=== PATIENT | female | born 1960 | race Caucasian/White ===

== ENCOUNTER 2016-04-24 10:38 | Day surgery (SDC) | payer OTHER ==
[~2016-04-24] VITALS: Ht 167.6 cm; Wt 62.1 kg
[~2016-04-24 10:38] MED LIST: DARVOCET-N 1001 EACH PO; DULOXETINE 30MG30 MG PO; FLEXERIL10 MG PO; GABAPENTIN 600600 MG PO; HCTZ/LISINOPRIL1 TA3 PO; LEVOTHYROXIN0.125 M1 NG; MELOXICAM15 MG PO; METAXALONE800 MG PO; MOBIC7.5 MG PO; MULTIVITAMIN1 SGL PO; OMEPRAZOLE40 MG PO; PROAIR HFA0.09 MG/AC IH; TRAZADONE HYDR100 MG PO
[2016-04-24 10:54] VITALS: BP 138/77
[2016-04-24 11:23] VITALS: BP 138/77
[2016-04-24 11:24] VITALS: BP 90/63
--- NOTE | 2016-04-24 11:36 | Procedure Note ---
Procedure detail Date of procedure: 04/24/16 Anesthesiologist: Kamron Reddy CRNA Complications: None Pre-procedure diagnosis: Facet arthropathy, lumbar spondylosis Post-procedure diagnosis: Same Indications for procedure: This patient's a very pleasant 55-year-old white female we've been treating her pain clinic for chronic low back pain secondary to degenerative disease lumbar spine multiple levels as well as lumbar facet arthropathy. Lumbar spondylosis. Patient status post 2 rounds medial branch block lumbar L3-4, L4-5, L5-S1. Patient reports 2-3 hours of complete relief in terms of her low back pain. After which time her pain slowly returned to baseline. I discussed rhizotomy lumbar spine with the patient today. She wishes to proceed. She describes her low back pain as constant, dull, aching. She does not report radiculopathy symptoms. We will proceed with a radiofrequency ablation today we will begin on the RIGHT side and have her come back in 2 weeks for the LEFT. Procedure detail: The procedure was explained to the patient in detail. Consent form was signed. Patient was taken back to the procedure room, where noninvasive monitors were placed. This included noninvasive blood pressure cuff and pulse oximeter. The patient was placed prone on the C-arm table. The area over the lumbar spine was cleansed using chlorhexidine as cleansing solution. Using fluoroscopy guidance, markers were placed over the pedicle at the RIGHT [ L4, L5] as well as over the [sacral ala]. 1% Lidocaine was used to anesthetize the skin with a 25-gauge needle at these markers. Using fluoroscopy guidance the radiofrequency probe was used to access the superior margin of the pedicle at [ L4, L5 and the sacral ala ]. After negative sensory and motor stimulation, 2 mls of 0.25% Marcaine and 10 mg of Depo-Medrol were injected into each needle. We then proceeded with radial frequency ablation at all 3 levels at 80 degrees Celsius 60 seconds. After the lesion was formed the needles were withdrawn. Band-Aids were applied. The patient tolerated the procedure without difficulty. There were no complications Plan and disposition: Patient was reevaluated 10 minutes post procedure. Patient reports slight pain in the RIGHT side lumbar spine. She'll continue to follow up with us in the pain clinic for further evaluation. at [id number]
[2016-04-24 11:58] VITALS: BP 116/75
== END 2016-04-24 11:58 ==
LOC: PM 10:38
PROC: 3E0T3TZ Introduction of Destructive Agent into Peripheral Nerves and Plexi, Percutaneous Approach (ICD-10-PCS; principal; 2016-04-24)
DX: M46.96 Unspecified inflammatory spondylopathy, lumbar region (principal); M47.896 Other spondylosis, lumbar region
CPT/HCPCS: J1030

== ENCOUNTER 2017-03-05 14:54 | Day surgery (SDC) | payer OTHER ==
[~2017-03-05] VITALS: Ht 167.6 cm; Wt 62.1 kg
[2017-03-05 15:07] VITALS: BP 114/64
[2017-03-05 15:21] VITALS: BP 114/64; BP 118/63
--- NOTE | 2017-03-05 15:34 | Procedure Note ---
Procedure detail Date of procedure: 03/05/17 Anesthesiologist: Kamron Reddy Complications: None Pre-procedure diagnosis: Degenerative disease lumbar spine multiple levels. Lumbar facet arthropathy. Lumbar spondylosis. Lumbar postlaminectomy syndrome. Post-procedure diagnosis: Same. Indications for procedure: Very pleasant 56-year-old white female that we've been treating for quite some time for chronic low back pain secondary to degenerative disc disease lumbar spine multiple levels. Lumbar spondylosis. Multilevel lumbar facet arthropathy. Patient is status post lumbar fusion. She responded favorably a year ago to radial frequency ablation of the L3-4, L4-5, L5-S1 levels bilaterally. Today she presents for medial branch blocks/facet blocks same levels. Procedure detail: Informed consent was obtained and the risk and benefits of the procedure was explained to the patient. Patient was taken to the procedure room where noninvasive monitors were placed, including noninvasive blood pressure cuff as well as pulse oximeter. The area over the lumbar spine was cleansed using chlorhexidine as a cleansing solution. I anesthetized the skin and subcutaneous tissues with 1% Lidocaine. I placed 22-gauge spinal needles into the facet joint / medial branches of [L3-L4, L4-L5, and L5-S1] bilaterally. Needle placement was confirmed with fluoroscopy. After confirmation of needle placement, each site was injected with 1 mL of 1% lidocaine and 0.25 % Marcaine and 10 mg of Depo- Medrol. A total of 80 mg of depo medrol was used for bilateral medial branch blocks of [L3-L4, L4-L5, and L5-S1] bilaterally. Patient tolerated the procedure without difficulty. There were no complications. Plan and disposition: Patient was evaluated 10 minutes postprocedure. She reports 100 percent improved terms of her lumbar back pain in flexion, extension, LEFT and RIGHT rotation. at [id number]
[2017-03-05 15:35] VITALS: BP 118/55
== END 2017-03-05 15:36 | disposition home or self-care (01) ==
LOC: PM 14:54
PROC: 3E0T3BZ Introduction of Anesthetic Agent into Peripheral Nerves and Plexi, Percutaneous Approach (ICD-10-PCS; principal; 2017-03-05)
PROC: 3E0T33Z Introduction of Anti-inflammatory into Peripheral Nerves and Plexi, Percutaneous Approach (ICD-10-PCS; 2017-03-05)
PROC: BR161ZZ Fluoroscopy of Lumbar Facet Joint(s) using Low Osmolar Contrast (ICD-10-PCS; 2017-03-05)
DX: M51.36 Other intervertebral disc degeneration, lumbar region (principal); M54.06 Panniculitis affecting regions of neck and back, lumbar region; M47.896 Other spondylosis, lumbar region; M96.1 Postlaminectomy syndrome, not elsewhere classified
CPT/HCPCS: J1040